=== PATIENT | female | born 1950 | race Caucasian/White ===

== ENCOUNTER 2022-04-08 13:09 | Emergency (ER) | payer MEDICARE, SELFPAY ==
--- NOTE | 2022-04-08 13:22 | ED.SKABFB ---
HPI - Skin/Abscess/Foreign Bdy General Chief complaint: Extremity Injury, Upper Stated complaint: right finger lac Time Seen by Provider: 04/08/22 13:22 Source: patient and RN notes reviewed History of Present Illness HPI narrative: patient is a 71-year-old female who presents to urgent care with complaints of a right finger laceration. Patient states that she was attempting to open a dog food can and sliced her finger. Patient is not up-to-date on tetanus. Denies any other acute complaints or injuries. No acute distress noted. Patient aware of plan of care. Some parts of this dictation were generated by voice recognition software and may contain typographical and/or grammatical inaccuracies. Related Data Allergies Allergy/AdvReac Type Severity Reaction Status Date / Time No Known Allergies Allergy Verified 04/08/22 13:28 Review of Systems Review of Systems: CONSTITUTIONAL: Denies fever, chills, or sweats. EYES: Denies visual changes, redness, or discharge. ENT: Denies rhinorrhea, congestion, sore throat, or otalgia. CARDIOVASCULAR: Denies chest pain, palpitations, or edema. RESPIRATORY: Denies cough or dyspnea. GASTROINTESTINAL: Denies abdominal pain, nausea, vomiting, or diarrhea. GENITOURINARY: Denies dysuria or hematuria. SKIN: Reports of a laceration to the right index finger MUSCULOSKELETAL: Denies back pain, joint pain, or myalgia. NEUROLOGIC: Denies headache, numbness, or weakness. All other systems reviewed are negative, except as documented in HPI. PMFSH Comments At the time of my signature, I reviewed and agree with the nursing past medical, surgical, social, and family history. There is no relevant family history pertinent to the patient complaint. Exam Narrative: GENERAL: This is a well-nourished, well-developed patient, in no apparent distress. HEAD: normocephalic, atraumatic. EYES: PERRL. Sclera clear/white. Vision is grossly intact. EARS: External ears normal NOSE: External nose normal with no obvious nasal discharge, nares without redness, no rhinorrhea. THROAT: Mucous membranes moist NECK: Neck supple SKIN: 0.25 cm superficial laceration to the tuft of the right index finger.warm, intact with no suspicious lesions or rash, good texture and turgor. NEURO: awake, alert, and oriented to person, place and time. There were no obvious focal neurologic abnormalities. EXTREMITIES: No clubbing, cyanosis, or edema. positive strong right radial pulse with capillary refill less than 2 seconds Course Course Level of Care: Express Care Visit Vital Signs Vital signs: Vital Signs Temperature 97.9 F 04/08/22 13:23 Pulse Rate 89 04/08/22 13:23 Respiratory Rate 16 04/08/22 13:23 Blood Pressure 189/98 H 04/08/22 13:23 Pulse Oximetry 99 04/08/22 13:23 Oxygen Delivery Room Air 04/08/22 13:23 Temperature 97.9 F 04/08/22 13:23 Pulse Rate 89 04/08/22 13:23 Respiratory Rate 16 04/08/22 13:23 Blood Pressure 189/98 H 04/08/22 13:23 Pulse Oximetry 99 04/08/22 13:23 Oxygen Delivery Room Air 04/08/22 13:23 Reviewed- Patient is informed that they may have pre-hypertension or hypertension based on a blood pressure reading in the department. I recommend the patient call the primary care provider listed on their discharge instructions or a physician of their choice this week to arrange follow-up for further evaluation of possible pre-hypertension or hypertension. MDM - Skin/Abscess/Foreign Bdy MDM Narrative Medical decision making narrative: advised patient to keep pressure on the laceration for the next 24 hours. Do not remove the bandage and left becomes soiled. Change the bandage once per day and use plain dial soap and water to clean the area. Hitting capillaries with laceration injuries can cause a lot of bleeding, applied pressure is necessary. Urinalysis today on her tetanus shot. Follow-up with your PCP within 2-5 days or for worsening symptoms or failure to impr
[2022-04-08 13:23] VITALS: BP 189/98; PULSE 89; RESP 16; TEMP 36.6; O2SAT 99
[2022-04-08] MEDS: TETANUS,DIPHTHERIA,AC PERTUSSIS ADULT (0.5 ML) BOOSTRIX IM (13:36)
== END 2022-04-08 13:55 | disposition home or self-care (01) ==
PROVIDERS: Emergency Provider Nurse Practitioner Family; PCP Nurse Practitioner Family
DX: S61.210A Laceration without foreign body of right index finger without damage to nail, initial encounter (principal); W26.8XXA Contact with other sharp object(s), not elsewhere classified, initial encounter; Z23 Encounter for immunization
CPT/HCPCS: 29130; 90471; 90715; 99212; G0463